=== PATIENT | female | born 1980 | race Hispanic/Latino ===

== ENCOUNTER → 2025-09-01 | Outpatient (CLI) | payer BC ==
--- NOTE | 2025-09-01 16:58 | HMCIMG ---
EXAM: MAGNETIC RESONANCE IMAGING OF THE LUMBAR SPINE WITHOUT CONTRAST TECHNIQUE: Magnetic resonance imaging of the lumbar spine was performed without intravenous contrast using standard multiplanar, multisequence protocol. Sequences included sagittal and axial T1-weighted, T2-weighted, and STIR images. Radiation-free technique was used. CLINICAL INFORMATION: Low back pain, unspecified. COMPARISON: None available. FINDINGS: Vertebral body height: Maintained. No compression deformities. Disc height and signal: Disc desiccation noted throughout the lumbar spine with reduction in L5-S1 disc height. Alignment: Mild straightening of lumbar lordosis without spondylolisthesis. Bone marrow signal: Normal; no abnormal marrow edema or infiltration. Conus medullaris: Terminates at L1. Normal signal intensity. Paraspinal soft tissues: Unremarkable without edema or collection. [id number] Analysis: L1-L2: Intervertebral disc intact. Facet and ligamentum flavum hypertrophy present. No central canal or foraminal stenosis. L2-L3: Broad-based circumferential disc bulge effacing the ventral thecal sac. Facet and ligamentum flavum hypertrophy with mild central canal stenosis and moderate foraminal stenosis causing mild bilateral exiting nerve root impingement. L3-L4: Broad-based circumferential disc bulge effacing the ventral thecal sac. Facet and ligamentum flavum hypertrophy with mild central canal stenosis and [id number] foraminal stenosis causing bilateral nerve root impingement. L4-L5: Broad-based circumferential disc bulge effacing the ventral thecal sac. Facet and ligamentum flavum hypertrophy producing moderate central canal stenosis and severe bilateral foraminal stenosis with bilateral exiting nerve root impingement. L5-S1: Circumferential disc bulge impinging the ventral thecal sac. Severe bilateral foraminal stenosis with impingement of the exiting L5 nerve roots. Facet arthropathy and ligamentum flavum hypertrophy. No central canal stenosis. IMPRESSION: * Multilevel degenerative disc disease and spondylosis, most pronounced at L4-L5 and L5-S1. * Severe bilateral foraminal stenosis at L4-L5 and L5-S1 with impingement of the exiting nerve roots. * [id number] foraminal stenosis at L3-L4. * Mild central canal stenosis at L2-L3 through L4-L5. * Straightening of lumbar lordosis, likely due to muscular spasm. [facility]
--- NOTE | 2025-09-01 16:59 | HMCIMG ---
EXAM: MAGNETIC RESONANCE IMAGING OF THE CERVICAL SPINE WITHOUT CONTRAST TECHNIQUE: Magnetic resonance imaging of the cervical spine was performed without intravenous contrast using standard multiplanar, multisequence protocol. Sequences included sagittal and axial T1-weighted, T2-weighted, and STIR images. CLINICAL INFORMATION: Cervicalgia. COMPARISON: None. FINDINGS: Vertebral body height: Preserved. No compression deformities. Calcification of the posterior longitudinal ligament noted from C3 through C6. Disc height and signal: Diffuse disc desiccation throughout the cervical spine. Spinal cord: Normal caliber and signal without focal abnormality. Alignment: Straightening of the normal cervical lordosis, likely secondary to muscular spasm. No spondylolisthesis. Bone marrow signal: Normal without focal lesion. Craniovertebral junction: Normal. No evidence of Chiari malformation. Paraspinal soft tissues: Normal. No edema or mass lesion identified. [id number] Analysis: C2-C3: No disc bulge or protrusion. Facet joints intact. Neural foramina and spinal canal are patent. C3-C4: No significant disc bulge. Facet articulations intact. Neural foramina and canal are patent. C4-C5: Shallow disc bulge mildly effacing the ventral thecal sac. No foraminal or canal stenosis. C5-C6: Broad-based circumferential disc bulge impinging upon the ventral thecal sac with severe bilateral neural foraminal stenosis and impingement of the exiting C6 nerve roots. Moderate central canal stenosis. C6-C7: No significant disc bulge. Facet joints intact. No foraminal or canal stenosis. C7-T1: No disc pathology or stenosis. Facet joints intact. IMPRESSION: * Multilevel cervical spondylosis with diffuse disc desiccation. * Severe bilateral foraminal stenosis at C5-C6 with impingement of the exiting C6 nerve roots. * Moderate central canal stenosis at C5-C6. * Calcification of the posterior longitudinal ligament from C3 through C6. * Straightening of cervical lordosis, likely secondary to muscular spasm. /Dewitt
== END | disposition home or self-care (01) ==
LOC: RAH 13:23
PROVIDERS: ATTEND Family Medicine
DX: M47.22 Other spondylosis with radiculopathy, cervical region (principal); M48.02 Spinal stenosis, cervical region; M40.50 Lordosis, unspecified, site unspecified; M50.10 Cervical disc disorder with radiculopathy, unspecified cervical region; M47.817 Spondylosis without myelopathy or radiculopathy, lumbosacral region; M48.07 Spinal stenosis, lumbosacral region; M48.061 Spinal stenosis, lumbar region without neurogenic claudication; M50.121 Cervical disc disorder at C4-C5 level with radiculopathy; M50.122 Cervical disc disorder at C5-C6 level with radiculopathy; M51.370 Other intervertebral disc degeneration, lumbosacral region with discogenic back pain only; M40.56 Lordosis, unspecified, lumbar region; M43.16 Spondylolisthesis, lumbar region
CPT/HCPCS: 72141; 72148